=== PATIENT | female | born 1950 | race Caucasian/White ===

== ENCOUNTER 2021-06-17 12:51 | Outpatient (REF) | payer MEDICARE, SELFPAY ==
[2021-06-17 13:06] VITALS: BP 147/65; PULSE 79; RESP 16; TEMP 36.3; O2SAT 99
[2021-06-17 13:07] VITALS: BMI 25.7
== END 2021-06-17 12:52 | disposition home or self-care (01) ==
LOC: HO.MS 12:51
PROVIDERS: PCP Internal Medicine; Visit Provider Ophthalmology
PROC: (CPT 67840; principal; 2021-06-17 12:30)
DX: H02.821 Cysts of right upper eyelid (principal); I10 Essential (primary) hypertension; H52.4 Presbyopia; Z79.899 Other long term (current) drug therapy; Z87.891 Personal history of nicotine dependence
CPT/HCPCS: 67840; 88305

== ENCOUNTER 2022-11-27 13:03 | Outpatient (AMB) | payer MEDICARE, SELFPAY ==
--- NOTE | 2022-11-27 13:19 | MHC.OFFVIS ---
Intake Vital Signs 11/27/22 13:33 Height 5 ft 5 in Weight 176 lb 6 oz BMI 29.3 BP 130/84 Blood Pressure Location Rt brachial Position Sitting Pulse 85 Pulse Source Pulse Oximeter Pulse Oximetry (%) 97 Intake Visit Reasons: NPV-Restless Legs-lvm Intake Note: Patient presents for new patient evaluations Allergies No Known Allergies Allergy (Verified 11/27/22 13:31) Medication List - Last Reconciled 11/27/22 by Laisha Gabriel MD amlodipine 5 mg PO DAILY pramipexole mg PO pramipexole ER 0.375 mg PO BEDTIME HPI HPI Comments History of Present Illness Details 72y/o female comes for further management of restless legs syndrome and PLMD. she reports symptoms since her 30s. SHe was trialed on ropinirole -had a paradoxical response. ABout 2 years ago she was started on pramipexole 0.125 mg . It helps her but still reports residual symptoms. she take sthe medication at 8 pm and is able to fall asleep by 11pm. Now her symptoms start at 3 pm on some days and she still wake sup at 1 am with symptoms she describes the symptom as jumpy legs at rest , improved with activity.she was evaluated with a sleep study in the past No evidence of sleep apnea. Since then she has gained about 40lbs and reports snoring and hypersomnia. [facility] Medical History (Updated 11/27/22 @ 13:56 by Laisha Gabriel MD) Endometrial cancer HTN (hypertension) Hyperlipidemia Hypersomnia Insomnia Osteoporosis Restless legs syndrome (RLS) Snoring Vitamin D deficiency Surgical History H/O: hysterectomy Family History Father HTN (hypertension) Mother HTN (hypertension) Dementia Daughter Multiple sclerosis Social History Alcohol intake: never Patient Tobacco Use Status: Never used Tobacco Review of Systems Const Reports lethargy, Reports malaise and Reports snoring Resp Reports snoring Neuro Reports restless legs Physical Exam Vital Signs: Last Vital Signs Pulse 85 11/27/22 13:33 BP 130/84 11/27/22 13:33 Pulse Ox 97 11/27/22 13:33 BMI result Body Mass Index 29.3 Const General: cooperative, healthy appearing and comfortable Nutritional Appearance: average body habitus Orientation/consciousness: patient oriented x3 Limitations: no limitations Eyes Pupils: Equal, round and reactive pupils present Neuro General: patient oriented x3, gait normal, tone normal, moves all extremities and no focal motor deficits Cranial nerves: Yes Facial sensation intact/muscles of mastication intact, Yes Equal, round and reactive pupils present, Yes Bilaterally intact EOM present, Yes Nystagmus not present, Yes Normal facial strength present, Yes Midline tongue present and Yes Symmetric palate elevation present Cognition (Neuro): normal cognition Gait exam (Neuro): Normal gait present Motor exam (neuro): 5/5 motor strength present throughout, Pronator motor function not present, no tremor noted, Normal motor muscle tone present throughout and Motor abnormalities not present Deep tendon reflexes (DTR's): Right triceps reflex intensity grade: 1+, Left triceps reflex intensity grade: 1+, Rt Biceps (C5, C6): 1+, Left biceps reflex intensity grade: 1+, Right brachioradialis reflex intensity grade: 1+, Left brachioradialis reflex intensity grade: 1+, Right patellar reflex intensity grade: 1+ and Left patellar reflex intensity grade: 1+ Coordination: [id number] test normal Assessment & Plan Assessment & Plan (1) Restless legs syndrome (RLS): Code(s): G25.81 - Restless legs syndrome (2) Snoring: Code(s): R06.83 - Snoring (3) Hypersomnia: Code(s): G47.10 - Hypersomnia, unspecified Plan Trial patient on Pramipexole XR 0.375mg qhs Continue pramipexole 0.125mg q 3 pm as needed Home sleep test to r/o sleep apnea lab reports from PCP Orders: Orders RT home sleep study Today G47.10 - Hypersomnia, unspecified, R06.83 - Snoring Medications: New pramipexole ER 0.375 mg PO BEDTIME 30 tabs 3RF Coding Level of Care Code New Pt Level 4 (59981) Diagnoses Restless legs syndrome (RLS) G25.81 Snoring R06.83 Hypersomnia G47.10
[2022-11-27 13:33] VITALS: BP 130/84; PULSE 85; O2SAT 97; BMI 29.3
== END 2022-11-27 13:39 | disposition home or self-care (01) ==
LOC: HO.HSMS 13:03
PROVIDERS: PCP Internal Medicine; Visit Provider Psychiatry & Neurology Neurology
DX: G25.81 Restless legs syndrome (principal); R06.83 Snoring; G47.10 Hypersomnia, unspecified
CPT/HCPCS: 99204

== ENCOUNTER → 2022-11-27 13:03 | Outpatient (BNVA) | payer MEDICARE, SELFPAY | PROVIDERS: PCP Internal Medicine; Visit Provider Psychiatry & Neurology Neurology | DX: G25.81 Restless legs syndrome (principal); R06.83 Snoring; G47.10 Hypersomnia, unspecified; Z79.899 Other long term (current) drug therapy | CPT/HCPCS: 99202 ==

== ENCOUNTER → 2023-01-05 12:48 | Outpatient (REF) | payer MEDICARE, SELFPAY | LOC: HO.SL 12:48 | PROVIDERS: Visit Provider Psychiatry & Neurology Neurology | DX: G47.10 Hypersomnia, unspecified (principal); R06.83 Snoring | CPT/HCPCS: 95806 ==

== ENCOUNTER → 2023-01-05 13:00 | Outpatient (BNV) | payer MEDICARE, SELFPAY | PROVIDERS: Visit Provider Psychiatry & Neurology Neurology | DX: R06.83 Snoring (principal) | CPT/HCPCS: 95806 ==

== ENCOUNTER 2023-03-25 08:53 | Outpatient (AMB) | payer MEDICARE, SELFPAY ==
--- NOTE | 2023-03-25 08:58 | A.OFFVIS_ITS ---
Intake Vital Signs 03/25/23 09:03 Height 5 ft 5 in Weight 178 lb 4 oz BMI 29.7 BP 158/90 H Blood Pressure Location Rt brachial Position Sitting Respiration 17 Pulse 76 Pulse Source Pulse Oximeter Pulse Oximetry (%) 98 Oxygen Delivery Method Room Air Intake Visit Reasons: 3m f/u Restless Legs - Conf t/CW Intake Note: Pt presents to the office for follow up for restless legs. She reports her symptoms are unchanged since her last visit. 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 SHe was trialed on ropinirole -had a paradoxical response. she describes the symptom as jumpy legs at rest , improved with activity. Home sleep test was normal [facility] Medical History (Updated 11/27/22 @ 13:56 by Laisha Gabriel MD) Hypersomnia Snoring Restless legs syndrome (RLS) Vitamin D deficiency HTN (hypertension) Hyperlipidemia Endometrial cancer Insomnia Osteoporosis Surgical History H/O: hysterectomy Family History Father HTN (hypertension) Mother HTN (hypertension) Dementia Daughter Multiple sclerosis Social History Alcohol intake: never Patient Tobacco Use Status: Never used Tobacco Questionnaire Restless Legs Rating Scale Overall, how would you rate the RLS discomfort in your legs or arms?: Moderate Overall, how would you rate the need to move around because of your RLS symptoms?: Moderate Overall, how much relief of your RLS arm or leg discomfort do you get from moving around?: Moderate Relief Overall, how severe is your sleep disturbance from your RLS symptoms?: Mild How severe is your tiredness or sleepiness from your RLS symptoms?: Moderate Overall, how severe is your RLS as a whole?: Moderate How often do you get RLS symptoms?: Very Severe (This Means 6 to 7 days a week.) When you have RLS symptoms, how severe are they on an average day?: Moderate (This means 1 to 3 hour per 24 hour day.) Overall, how severe is the impact of your RLS symptoms on your ability to carry out your daily affairs, for example carrying out a satisfactory family, home, social, school, or work life?: Mild How severe is your mood disturbance from your RLS symptoms-for example angry, depressed, sad, anxious, or irritable?: Mild Total Score: 19 Rate your symptoms severity for the preceding week overall.: Moderate Physical Exam Vital Signs: Last Vital Signs Pulse 76 03/25/23 09:03 Resp 17 03/25/23 09:03 BP 158/90 H 03/25/23 09:03 Pulse Ox 98 03/25/23 09:03 Oxygen Delivery Method Room Air 03/25/23 09:03 BMI result Body Mass Index 29.7 Assessment & Plan Assessment & Plan (1) Restless legs syndrome (RLS): Code(s): G25.81 - Restless legs syndrome (2) Snoring: Code(s): R06.83 - Snoring (3) Hypersomnia: Code(s): G47.10 - Hypersomnia, unspecified Plan Continue pramipexole 0.125mg 1tabs between 4 and 6pm and 1 tab at bedtime Home sleep test was normal. Increase iron intake Magnesium glycinate 200-400mg qhs lab reports from PCP Medications: Changed From pramipexole 0.125 mg PO .3 pm and 8 pm 60 tabs 6RF To pramipexole 0.125 mg PO .3 pm and 8 pm 90 days 180 tabs 6RF Coding Level of Care Code Est Pt Level 4 (01875) Diagnoses Restless legs syndrome (RLS) G25.81 Snoring R06.83 Hypersomnia G47.10
[2023-03-25 09:03] VITALS: BP 158/90; PULSE 76; RESP 17; O2SAT 98; BMI 29.7
== END 2023-03-25 09:31 | disposition home or self-care (01) ==
PROVIDERS: PCP Internal Medicine; Visit Provider Psychiatry & Neurology Neurology
DX: G25.81 Restless legs syndrome (principal); R06.83 Snoring; G47.10 Hypersomnia, unspecified
CPT/HCPCS: 99214

== ENCOUNTER → 2023-03-25 08:53 | Outpatient (BNVA) | payer MEDICARE, SELFPAY | PROVIDERS: PCP Internal Medicine; Visit Provider Psychiatry & Neurology Neurology | DX: G25.81 Restless legs syndrome (principal); G47.10 Hypersomnia, unspecified; R06.83 Snoring | CPT/HCPCS: 99212 ==

== ENCOUNTER 2024-04-07 08:39 | Outpatient (AMB) | payer MEDICARE, SELFPAY ==
--- NOTE | 2024-04-07 08:43 | A.OFFVIS_ITS ---
Vital Signs 04/07/24 08:46 Height 5 ft 5 in BP 150/98 H Blood Pressure Location Rt brachial Position Sitting Intake Visit Reasons: 1 yr f/u Per MD Intake Note: Patient presents for 1 year follow up Allergies No Known Allergies Allergy (Verified 04/07/24 08:45) Medication List - Last Reconciled 04/07/24 by Bo Avalso PA-C amlodipine 5 mg PO DAILY pramipexole 0.125 mg PO .3 pm and 8 pm 90 days HPI Comments Details: 73 y/o female comes for further management of restless legs syndrome and PLMD. She is on pramipexole 0.125 1-tab 3 pm 1-2 tab qhs and it is helping she is taking it at 6pm and 1 dose at 8pm, managed with medications. Iron - D, B12, B2, B6 is normal, TSH is normal. Magnesium- oxide 500mg Home sleep study is normal. She could not tolerate gabapentin, and ropinorole was sedating. She reports symptoms since her 30s. She describes the symptom as jumpy legs at rest , improved with activity. 10-30pm is bedtime, wakes up 2-3 times at night, 6:30AM gets up. Snoring, daytime excessive sleepiness. Mood is anxious, due to some family changes. She has a good support network with her sister and daughters. She does walk and does stay active. Would like someone to validate her concerns, we discussed finding a good therapist for her on psychology today . [facility] Medical History Hypersomnia Snoring Restless legs syndrome (RLS) Vitamin D deficiency HTN (hypertension) Hyperlipidemia Endometrial cancer Insomnia Osteoporosis Surgical History H/O: hysterectomy Family History Father HTN (hypertension) Mother HTN (hypertension) Dementia Daughter Multiple sclerosis Social History Alcohol intake: never Patient Tobacco Use Status: Never used Tobacco Physical Exam Vital Signs: Last Vital Signs BP 180/102 H 04/07/24 08:46 Const General: cooperative, comfortable and no acute distress Orientation/consciousness: patient oriented x3 HEENT Face and sinus: Yes normal facial exam and Yes face symmetric Eyes General: appearance normal, both eyes and all related structures Pupils: Equal, round and reactive pupils present, Pupils normal by confrontation and Pupil accommodation reflex normal Neck Neck: Yes full ROM Resp Effort & Inspection: normal respiratory effort and able to speak in complete sentences Neuro General: patient oriented x3 Cranial nerves: Yes CN's II-XII intact bilaterally, Yes Facial sensation inta ct/muscles of mastication intact, Yes Equal, round and reactive pupils present, Yes Normal accommodation reflex present, Yes Bilaterally intact EOM present, Yes Ability to bilaterally rotate head present and Yes Ability to bilaterally elevate shoulders present Deep tendon reflexes (DTR's): Right triceps reflex intensity grade: 2+, Left triceps reflex intensity grade: 2+, Rt Biceps (C5, C6): 2+, Left biceps reflex intensity grade: 2+, Right brachioradialis reflex intensity grade: 2+, Left brachioradialis reflex intensity grade: 2+, Right patellar reflex intensity grade: 2+ and Left patellar reflex intensity grade: 2+ Coordination: [id number] test normal Assessment & Plan Assessment & Plan (1) Restless legs syndrome (RLS): Code(s): G25.81 - Restless legs syndrome Category: Medical (2) Hypersomnia: Code(s): G47.10 - Hypersomnia, unspecified Category: Medical Plan Continue pramipexole 0.125mg 1tabs between 4 and 6pm and 1 tab at bedtime Home sleep test was normal. May Increase iron intake with orange juice. Magnesium glycinate 200-400mg qhs lab reports from PCP are normal at this time. Diet and lifestyle will help with mood, and management of daily stress, Continue walking, engaging with your support network and monitoring blood pressure Medications: New magnesium oxide 400 mg PO DAILY 90 tabs 0RF G25.81 - Restless legs syndrome, R06.83 - Snoring Coding Level of Care Code Est Pt Level 3 (62930) Diagnoses Restless legs syndrome (RLS) G25.81 Hypersomnia G47.10
[2024-04-07 08:46] VITALS: BP 150/98
== END 2024-04-07 09:46 | disposition home or self-care (01) ==
PROVIDERS: Absent Provider Psychiatry & Neurology Neurology; PCP Internal Medicine; Visit Provider Physician Assistant Medical
DX: G25.81 Restless legs syndrome (principal); G47.10 Hypersomnia, unspecified
CPT/HCPCS: 99213

== ENCOUNTER → 2024-04-07 08:39 | Outpatient (BNVA) | payer MEDICARE, SELFPAY | PROVIDERS: Absent Provider Psychiatry & Neurology Neurology; PCP Internal Medicine; Visit Provider Physician Assistant Medical | DX: G25.81 Restless legs syndrome (principal); G47.10 Hypersomnia, unspecified | CPT/HCPCS: 99212 ==

== ENCOUNTER 2024-10-06 09:39 | Outpatient (AMB) | payer MEDICARE, SELFPAY ==
--- NOTE | 2024-10-06 09:54 | MHC.OFFVIS ---
Vital Signs 10/06/24 09:55 Height 5 ft 5 in Weight 180 lb BMI 30.0 BP 132/80 Blood Pressure Location Rt brachial Position Sitting Pulse 76 Pulse Source Pulse Oximeter Pulse Oximetry (%) 95 Oxygen Delivery Method Room Air Intake Visit Reasons: Follow Up 6mo Intake Note: Patient presents follow up RLS/Sleep medication. Allergies No Known Allergies Allergy (Verified 10/06/24 10:02) HPI Comments Details: 74 y/o female comes for further management of RLS and PLMD. 12/2022 HST AHI was 2 and oxygen david to 84%, did not meet the criteria for sleep apnea. She continues to take Pramipexole 0.125 1-tablet at 3pm, then 1-2 tablets qhs, between 6-8pm, this routine has helped her legs to be less jumpy and she falls asleep by 10:30pm. If she misses a dose, she will take 2 tablets at 8pm, and usually by 10:30 pm she is asleep. In the past she tried gabapentin and ropinirole however felt sedated the next morning. She says her legs have been jumpy at rest since she can remember in her 30s, however they improve with activity. She has always struggled with sleep usually goes to sleep by 10:30pm at the latest wakes up at 3am and ruminates about intrusive daily thoughts. She still snores and is fatigued most days. Her blood pressure is better today, and she is feeling much better than last visit. She is trying to find a good psychologist who will listen to her and validate her concerns. Her mood is improved today, and she does have a good support network, she goes out with her sister and friends. She walks daily and stays active as it helps with the RLS symptoms. Reviewed labs with her TSH, Iron panel, Vit D B12, B6 is normal. She says she has been eating carbs at night and would like to change this habit. Her memory is okay, she forgets occasionally however nothing noticeable. She denies morning headaches. She denies bruxism. [facility] Medical History Hypersomnia Snoring Restless legs syndrome (RLS) Vitamin D deficiency HTN (hypertension) Hyperlipidemia Endometrial cancer Insomnia Osteoporosis Surgical History H/O: hysterectomy Family History Father HTN (hypertension) Mother HTN (hypertension) Dementia Daughter Multiple sclerosis Social History Alcohol intake: never Patient Tobacco Use Status: Never used Tobacco Physical Exam Vital Signs: Last Vital Signs Pulse 76 10/06/24 09:55 BP 132/80 10/06/24 09:55 Pulse Ox 95 10/06/24 09:55 Oxygen Delivery Method Room Air 10/06/24 09:55 BMI result Body Mass Index 30.0 Const General: cooperative, comfortable and no acute distress Nutritional Appearance: overweight Orientation/consciousness: patient oriented x3 HEENT Face and sinus: Yes face symmetric Eyes Pupils: Equal, round and reactive pupils present Resp Effort & Inspection: normal respiratory effort and able to speak in complete sentences Neuro General: patient oriented x3 and moves all extremities Cranial nerves: Yes Facial sensation intact/muscles of mastication intact, Yes Equal, round and reactive pupils present, Yes Normal accommodation reflex present, Yes Normal facial strength present, Yes Midline tongue present, Yes Ability to bilaterally rotate head present and Yes Ability to bilaterally elevate shoulders present Gait exam (Neuro): Normal gait present Motor exam (neuro): 5/5 motor strength present throughout and Normal motor muscle tone present throughout Coordination: [id number] test normal Psych Thought process: Normal thought process present Thought content: Normal thought content present Insight: Good insight present (Psych) Judgement: Good judgement present (Psych) Results Reviewed Results Reviewed: T 2022 AHI is 2 oxygen david to 84%, did not meet the criteria for sleep apnea. Labs from [place] are normal vit d is low, continue to take daily vitamin D. Assessment & Plan Assessment & Plan (1) Snoring: Code(s): R06.83 - Snoring Category: Medical (2) Hypersomnia: Code(s): G47.10 - Hypersomnia, unspecified Category: Medical (3) Restless legs syndrome (RLS): Code(s): G25.81 - Restless legs syndrome Category: Medical (4) Vitamin D deficiency: Code(s): E55.9 - Vitamin D deficiency, unspecified Category: Medical Plan Continue pramipexole 0.125mg 1tabs between 4 and 6pm and 1 tab at bedtime as neeed for RLS symptoms. Magnesium glycinate 200-400mg qhs Diet and lifestyle will help with mood, and management of daily stress, anxiety and fatigue. Continue walking daily, engaging with your support network and monitoring blood pressure. Patient Instructions: Sleep Hygiene provided: set a scheduled bedtime and wake time to help regulate the circadian rhythm and balance the release of pituitary hormones. Sleep in a dark room, temperatures below 68 degrees, and no devices n bed. Limit caffeinated products 6 hours prior to bed, and limit fluids 2-4 hours prior to bed. Gentle night yoga, diffusing essential oils, and playing soft music can be relaxing. Finding a sleep certified psychologist to speak with may be very helpful in the steps towards self-care. Meditation and finding a hobby to engage in with your religious or community may also be a means to focus on self care. Coding Level of Care Code Est Pt Level 4 (17846) Diagnoses Snoring R06.83 Hypersomnia G47.10 Restless legs syndrome (RLS) G25.81 Vitamin D deficiency E55.9 Time Spent (min) 30
[2024-10-06 09:55] VITALS: BP 132/80; PULSE 76; O2SAT 95
--- OUTSIDE RECORDS SUMMARY | 2024-10-06 09:56 | XMS_ITS | Clinical Summary ---
Author Organization [facility] Address [address] [place] [address] Phone Care Team Providers Care Inhalation Therapy Aide Name Role Phone Vida Ring Primary Care Provider + Allergies No known active allergies Medications pramipexole (MIRAPEX) 0.125 mg tablet Take 2 tablets (0.25 mg total) by mouth at bedtime. 3 Active conjugated estrogens (PREMARIN) vaginal cream 0.625 Each. 8 Active B complex tablet Take 1 tablet by mouth 1 (one) time each day. Active TURMERIC ORAL Take 500 mg by mouth 1 (one) time each day. Active amLODIPine (NORVASC) 5 mg tabletIndications :Essential (primary) hypertension TAKE 1 TABLET BY MOUTH EVERY DAY 90 tablet 3 5 Active Active Problems Problem Noted Date Diagnosed Date Insomnia 03/31/2024 Osteoporosis 03/31/2024 Overview (03/31/2024): BMD 02/23/20 Restless leg syndrome 01/20/2019 HTN (hypertension) 10/19/2017 Hyperlipidemia 10/19/2017 Vitamin D deficiency 10/19/2017 Immunizations Name Administration Dates Next Due Influenza trivalent, 0.5mL ( Fluad) 65yo and older 02/11/2017 Influenza, Unspecified 03/05/2023,03/18/2021,05/2019 Moderna SARS-CoV-2 COVID-19, mRNA, LNP-S, preservative free 05/07/2021 Pneumococcal conjugate 13 va lent (Prevnar 13, PCV13) 2mo and older 06/28/2015 Pneumococcal polysaccharide 23 valent (Pneumovax 23) 2yo and older 01/31/2016 Tdap Tetanus diptheria acell ular pertussis (Boostrix; Adacel) 7yo and older 05/30/2009 Surgical History Surgery Date Site/Laterality Comments OTHER SURGICAL HISTORY 1999 PROCEDURE: [place] TOTAL ABDOMINAL HYSTERECT W/WO RMVL TUBE OVARY; COMMENT: due to endometrial cancer - Dr. Regalado TUBAL LIGATION PROCEDURE: HISTORICAL TUBAL LIGATION Medical History Medical History Date Comments Hypercholesteremia 10/19/2017 DX:Hyperchole steremia Vitamin D deficiency 10/19/2017 DX:Vitamin D deficiency Insomnia DX:Insomnia History of endometrial cancer DX :History of endometrial cancer; COMMENT: s/p TIM 1999 Dr. Regalado Osteoporosis DX:Osteoporosis; COMMENT: BMD 02/23/20 HTN (hypertension) 10/19/2017 DX:HTN (hyper tension) Family History Medical History Relation Name Comments Heart failure Father Other: cardiomegaly Father Dementia Mother Hypertension Mother Relation Name Status Comments Father (Age 74) Mother Alive Social History Tobacco Use Types Packs/Day Years Used Date Smoking Tobacco: Former Cigarettes 0.5 5 0 10/14/1965 - 10/14/1970 Smokeless Tobacco: Never Tobacco Cessation:Counseling Given: Not Answered Alcohol Use Standard Drinks/Week Comments Yes 0 (1 standard drink = 0.6 oz pur e alcohol) Housing Instability Answer Date Recorde d Are you worried that in the next 2 months you may not have stable housing? No 04/29/2024 Food Access & Nutrition Answer Date Rec orded Do you have access to a vari ety of food including fruits and vegetables? Yes 04/29/2024 Access to Healthcare Answer Date Record ed Within the last 3 months, ho w many times did you visit the emergency department for your medical care? 0 04/29/2024 Health Literacy Answer Date Recorded How often do you need to hav e someone help you when you read instructions, pamphlets, or other written material from your doctor or pharmacy? Never 04/29/2024 Caregiver: How often do you need to have someone help you when you read instructions, pamphlets, or other written material from your doctor or pharmacy? Not on file 04/29/2024 Financial Risk Answer Date Recorded How hard is it for you to pa y for the very basics like food, housing, medical care, and air conditioning / heating? Not very hard 04/29/2024 Transportation Answer Date Recorded Has the lack of transportati on kept you from meetings, work, or from getting things needed for daily living? No Has the lack of transportati on kept you from medical appointments or from getting medications? No 04/29/2024 Social Isolation Answer Date Recorded How often do you feel lonely or isolated from th ose around you? Never 04/29/2024 Food Risk Answer Date Recorded Within the past 12 months we worried whether our food would run out before we got money to buy more. Never true 04/29/2024 Within the past 12 months th e food we bought just didn't last and we didn't have money to get more. Never true 04/29/2024 Dependent Care Answer Date Recorded Do you need help finding or paying for care for your loved ones. For example, early childhood teacher or elderly care for an older adult? No 04/29/2024 Education Answer Date Recorded Do you think completing more education or training, like finishing a GED, going to college, or learning a trade, would be helpful for you? No 04/29/2024 Employment and Income Answer Date Recor ded During the last four weeks, have you been actively looking for work? No 04/29/2024 Living Situation Answer Date Recorded What is your living situation? 1 06/30/2023 Comments Unknown Sex and Gender Information Value Date Recorded Sex Assigned at Not on file Legal Sex Female 3:20 AM EST Gender Identity Not on file Sexual Orientation Not on file Obstetrics History Last Filed Vital Signs Vital Sign Reading Time Taken Comments Blood Pressure 122/70 05/05/2024 11:16 AM EST Pulse 78 05/05/2024 11:16 AM EST Temperature 36.6 ??C (97.8 ??F) 05/05/2024 11:[address] Respiratory Rate - - Oxygen Saturation 97% 05/05/2024 11:16 AM EST Inhaled Oxygen Concentration - - Weight 78.9 kg (174 lb) 05/05/2024 11:16 AM EST Height 165.1 cm (5' 5 ) 05/04/2023 10:46 AM EST Body Mass Index 28.96 05/04/2023 10:46 AM EST Plan of Treatment Upcoming Encounters Date Type Department Care Team (Late st Contact Info) Description 05/08/2025 11:15 AM EST Office Visit Internal Medicine - [place] [address] [place] [address] Vida Ring, MIYA [address] [place] [address] Health Maintenance Due Date Last Done Comments Zoster Vaccines (1 of 2) 01/17/2000 DTaP,Tdap,and Td Vaccines (2 - Td or Tdap) 05/30/2019 05/30/2009 Falls Risk Assessment 04/26/2022 Hepatitis C Screening 04/26/2022 Medicare Annual Wellness Visit 04/26/2022 COVID-19 Vaccine ( season) 2024 05/07/2021, 09/02/2020, 08/05/2020 Hypertension/CHF/CAD Annual BMP Blood Test 07/13/2024 07/13/2023, 07/13/2023 RSV Immunization Adult Patients (1 - 1-dose 75+ series) 2025 Depression Screening 04/29/2025 04/29/2024 Social Influencers of Health Screening 04/29/2025 04/29/2024 Breast Cancer Screening 08/19/2025 08/20/19 24, 02/23/2020, 01/18/2019, Additional history exists Colorectal Cancer Screening: Colonoscopy 10/23/2025 10/23/2020 Cholesterol Screening (Lipid Panel) 07/13/2028 07/13/2023, 07/13/2023 Osteoporosis Screening (Bone Density Screening) 02/22/2030 02/23/2020 Pneumococcal Vaccine: 50+ Years Completed 01/31/2016, 06/28/2015 Influenza Vaccine Completed 03/24/2024, , 03/05/2023, Additional history exists HIB Vaccines Aged Out No longer eligi ble based on patient's age to complete this topic HPV Vaccines Aged Out No longer eligi ble based on patient's age to complete this topic Hepatitis A Vaccines Aged Out No long er eligible based on patient's age to complete this topic Hepatitis B Vaccines Aged Out No long er eligible based on patient's age to complete this topic IPV Vaccines Aged Out No longer eligi ble based on patient's age to complete this topic MMR Vaccines Aged Out No longer eligi ble based on patient's age to complete this topic Meningococcal ACWY Vaccine Aged Out N o longer eligible based on patient's age to complete this topic Meningococcal B Vaccine Aged Out No l onger eligible based on patient's age to complete this topic RSV Immunization Patients Under 20 months Aged Out No longer eligible based on patient's age to complete this topic Varicella Vaccines Aged Out No longer eligible based on patient's age to complete this topic Procedures Procedure Name Priority Date/Time Associated Diagnosis Comments [facility] SCREENING DIGITAL Routine 08/20/2023 11:33 AM EDT Encounter for screening mammogram for malignant neoplasm of breast ANNUAL BMP BLOOD TEST Routine 07/13/2023 LIPID PANEL Routine 07/13/2023 COLONOSCOPY Routine 10/23/2020 [facility] DEXA AXIAL SKELETON Routine 02/23/2020 10:41 AM EDT Age-related osteoporosis without current pathological fracture from Last 3 Months or Most Recently Relevant to Health Maintenance Results * [facility] SCREENING DIGITAL (08/20/2023 11:33 AM EDT) Anatomical Region Laterality Modality Mammography 08/20/2023 9:43 AM EDT Narrative 08/20/2023 11:33 AM EDT [facility] Diagnostic Imaging Department [address] [place], [place] [id number] Patient: ??ALINA PRINGLE ?/Age/Sex: 1950 - 73 - Unit#: ??[id number] ? Location/Status: ??SPDIMAM/REG CLI ? Mnemonic/Ordering Site: ??DIGSC/SPMAM Ordering Physician: ??WU HALLMAN MD [facility] Screening Digital - 08/20/23 - 0956 Report Status:Signed EXAM: [facility] Screening Digital EXAM DATE AND TIME: 08/20/2023 9:56 AM HISTORY: ??Annual screening COMPARISON: TECHNIQUE: Bilateral digital breast tomosynthesis was performed in the CC and MLO projections. Computer aided detection with [employer] 3D 3.1 was employed. TISSUE DENSITY: b. There are scattered areas of fibroglandular density. FINDINGS: No suspicious masses, grouped microcalcifications, or areas of architectural distortion are seen. The skin and vascularity are unremarkable. IMPRESSION: Stable mammographic appearance of the breasts. ??No evidence of malignancy is seen. A negative mammogram in the presence of a clinically suspicious palpable abnormality does not preclude the possibility of malignancy or alter the indications for biopsy. BI-RADS: ??Category 1: Negative RECOMMENDATION(S): 1: Routine screening mammogram BILATERAL in 1 year. 3341F, 7025F Dictating Physician: ??OWEN PACHECO MD Electronically Signed by: ??OWEN PACHECO MD Dic Date/Time: ??08/20/23 1132 Sign date/Time: ??08/20/23 1133 Procedure Note Owen Pacheco MD - 01/04/2024 [facility] Diagnostic Imaging Department [address] [place] [address] Patient: ALINA PRINGLE.O.B./Age/Sex: 1950 - 73 - F Unit#: [id number] Location/Status: SPDIMAM/REG CLI Mnemonic/Ordering Site: [facility] Ordering Physician: WU HALLMAN MD [facility] Screening Digital - 08/20/23 - 0956 Report Status:Signed EXAM: [facility] Screening Digital EXAM DATE AND TIME: 08/20/2023 9:56 AM HISTORY: Annual screening COMPARISON: TECHNIQUE: Bilateral digital breast tomosynthesis was performed in the CCand MLO projections. Computer aided detection with [employer] 3D 3.1was employed. TISSUE DENSITY: b. There are scattered areas of fibroglandular density. FINDINGS: No suspicious masses, grouped microcalcifications, or areas ofarchitectural distortion are seen. The skin and vascularity are unremarkable. IMPRESSION: Stable mammographic appearance of the breasts. No evidence of malignancyis seen. A negative mammogram in the presence of a clinically suspicious palpable abnormality does not preclude the possibility of malignancy or alter the indications for biopsy. BI-RADS: Category 1: Negative RECOMMENDATION(S): 1: Routine screening mammogram BILATERAL in 1 year. 3341F, 7025F Dictating Physician: OWEN PACHECO MD Electronically Signed by: OWEN PACHECO MD Dic Date/Time: 08/20/23 1132 Sign date/Time: 08/20/23 1133 Wu Hallman MD IM BI PROCEDURES Final Result * Annual BMP Blood Test (07/13/2023) Pathologist [facility] Annual BMP Blood Test abstracted Blu Provider HEALTH MAINTENANCE Final Result * (ABNORMAL) Lipid panel (07/13/2023) Pathologist [facility] LDL/HDL Ratio 4 0 - 4 Triglycerides 211(A) 0 - 150 mg/dL Cholesterol 168 0 - 200 mg/dL HDL 41 >=40 mg/dL LDL Cholesterol 85 0 - 100 mg/dL Blood Venous blood specimen / Unknown Historical Provider LAB BLOOD ORDERABLES Sanjana l Result * Colonoscopy (10/23/2020) Colonoscopy no interpretation , abstracted Anatomical Region Laterality Modality Other Historical Provider HEALTH MAINTENANCE Final Result * [facility] DEXA AXIAL SKELETON (02/23/2020 10:41 AM EDT) Anatomical Region Laterality Modality Mammography 02/23/2020 9:04 AM EDT Narrative 02/23/2020 10:41 AM EDT [facility] Diagnostic Imaging Department [address] [place] [address] Patient: ??ALINA PRINGLE ?/Age/Sex: 1950 - 70 - F Unit#: ??[id number] ? Location/Status: ??SPDIMAM/REG CLI ? Mnemonic/Ordering Site: ??MAMDEXAAX/SPMAM Ordering Physician: ??MAXIMUS ESCOBAR MD [facility] Dexa Axial Skeleton - 02/23/20 - 1007 HISTORY: ??The patient is a 70-year-old postmenopausal female with clinical concern for metabolic bone disease. FINDINGS: ??Dual energy x-ray absorptiometry of the lumbar spine and femurs is performed. The mean bone mineral density at L1-L4 is 1.116 gm/cm2 which is 95% of that of young normals and 109% of that of age matched controls. This yields a T-score of -0.5 and a Z-score of 0.8 and there is therefore no evidence of osteoporosis or osteopenia here. The mean bone mineral density of the femurs bilaterally is 0.813 gm/cm2 which is 81% of that of young normals and 95% of that of age matched controls. ??This yields a T-score of -1.5 and a Z-score of -0.3 which is diagnostic of osteopenia. However, the T-score of the right femoral neck is -2.8 which is diagnostic of osteoporosis. IMPRESSION: 1. Osteoporosis. ??There has been an increase of 0.5% in bone mineral density in the lumbar spine since the prior examination of 04/20/2017. ??There has been an increase of 3.8% in bone mineral density in the right femur and an increase of 2.4% in bone mineral density in the left femur. 2. FRAX analysis yields a 10-year probability of major osteoporotic fracture of 16.7% and a 10-year probability of hip fracture of 5.0%. Code 55001 Dictating Physician: ??BRITT DELANEY MD Electronically Signed by: ??BRITT DELANEY MD Dic Date/Time: ??02/23/20 1038 Sign date/Time: ??02/23/20 1041 Procedure Note Britt Delaney MD - 05/06/2022 [facility] Diagnostic Imaging Department [address] [place] [address] Patient: ALINA PRINGLE D.O.B./Age/Sex: 1950 - - F Unit#: [id number] Location/Status: SPDIMAM/REG CLI [facility] Ordering Physician: MAXIMUS ESCOBAR MD Rad[facility] Dexa Axial Skeleton - 02/23/20 - 1007 HISTORY: The patient is a 70-year-old postmenopausal female withclinical concern for metabolic bone disease. FINDINGS: Dual energy x-ray absorptiometry of the lumbar spine and femursis performed. The mean bone mineral density at L1-L4 is 1.116 gm/cm2 which is95% of that of young normals and 109% of that of age matched controls. Thisyields a T-score of -0.5 and a Z-score of 0.8 and there is therefore no evidenceof osteoporosis or osteopenia here. The mean bone mineral density of the femurs bilaterally is 0.813 gm/mj3hsqyr is 81% of that of young normals and 95% of that of age matched controls.This yields a T-score of -1.5 and a Z-score of -0.3 which is diagnostic of osteopenia. However, the T-score of the right femoral neck is -2.8 whichis diagnostic of osteoporosis. IMPRESSION: 1. Osteoporosis. There has been an increase of 0.5% in bone mineraldensity in the lumbar spine since the prior examination of 04/20/2017. There has beenan increase of 3.8% in bone mineral density in the right femur and anincrease of 2.4% in bone mineral density in the left femur. 2. FRAX analysis yields a 10-year probability of major osteoporoticfracture of 16.7% and a 10-year probability of hip fracture of 5.0%. Code 02575 Dictating Physician: BRITT DELANEY MD Electronically Signed by: BRITT DELANEY MD Dic Date/Time: 02/23/20 1038 Sign date/Time: 02/23/20 1041 Maximus Escobar MD IMG BI PROCEDURES Final Result from Last 3 Months or Most Recently Relevant to Health Maintenance Insurance [employer] Care Teams Inhalation Therapy Aide Relationship Specialty Start Date End Date Vida Ring PA [address] [place] [address] PCP - General 04/04/20
== END 2024-10-06 10:45 | disposition home or self-care (01) ==
LOC: HO.HSMS 09:39
PROVIDERS: PCP Internal Medicine; Visit Provider Physician Assistant Medical
DX: R06.83 Snoring (principal); G47.10 Hypersomnia, unspecified; G25.81 Restless legs syndrome; E55.9 Vitamin D deficiency, unspecified
CPT/HCPCS: 99214

== ENCOUNTER → 2024-10-06 09:39 | Outpatient (BNVA) | payer MEDICARE, SELFPAY | PROVIDERS: PCP Internal Medicine; Visit Provider Physician Assistant Medical | DX: G47.10 Hypersomnia, unspecified (principal); G25.81 Restless legs syndrome; R06.83 Snoring; E55.9 Vitamin D deficiency, unspecified | CPT/HCPCS: 99212 ==

== ENCOUNTER 2025-05-17 12:48 | Outpatient (AMB) | payer MEDICARE, SELFPAY ==
--- NOTE | 2025-05-17 13:04 | MHC.OFFVIS ---
Vital Signs 05/17/25 13:05 Height 5 ft 5 in Weight 177 lb BMI 29.5 BP 138/84 Blood Pressure Location Lt brachial Position Sitting Pulse 79 Pulse Source Pulse Oximeter Pulse Oximetry (%) 97 Oxygen Delivery Method Room Air Intake Visit Reasons: F/U Intake Note: Patient presents follow up RLS/Sleep. No chances. Accompanied by: Self / Same As Patient Allergies No Known Allergies Allergy (Verified 05/17/25 13:06) HPI Comments Details: 75 y/o female comes for further management of RLS and PLMD. 12/2022 HST AHI was 2 and oxygen david to <84% for 6.7 min, she snores 11% of TTB. She snores and is fatigued most days, declines a sleep dentistry evaluation today for an oral appliance. She continues to take 2 tablets of Pramipexole 0.125mg qpm, between 6-8pm, this routine has helped her legs to be less jumpy . If she misses a dose, she can stay up all night due to the discomfort as it takes 2 hours for her legs to settle down. She tried Gabpentin and Ropinirole in the past however she always felt sedated and hungover the next morning. She says her legs have been jumpy at rest since she can remember in her 30s, and improve with activity, stretching and walking helps to improve the discomfort. She has always struggled with sleep due to the leg spasms and twitches. She usually goes to sleep by 10:30pm and has multiple arousals with intrusive daily thoughts. Her blood pressure is better today, and she is feeling much better than last visit. Her 46 year old daughter moved out of the home and this has given her some more space and freedom. Her mood is improved today, and she does have a good support network, she goes out with her sister and friends. She has night time cravings and will eat empty carbs at night she has lost 3 lbs since her last visit. We discussed eating a nutrient dense diet through the day with increased proteins to improve her levels of satiety in the evenings. Her memory is stable, she forgets and has has occasional difficulty names.She denies morning headaches, denies parasomnias, abnormal sleep behaviors, smoking and has alcohol socially. [facility] Medical History Hypersomnia Snoring Restless legs syndrome (RLS) Vitamin D deficiency HTN (hypertension) Hyperlipidemia Endometrial cancer Insomnia Osteoporosis Surgical History H/O: hysterectomy Family History Father HTN (hypertension) Mother HTN (hypertension) Dementia Daughter Multiple sclerosis Social History Alcohol intake: never Patient Tobacco Use Status: Never used Tobacco Physical Exam Vital Signs: Last Vital Signs Pulse 79 05/17/25 13:05 BP 138/84 05/17/25 13:05 Pulse Ox 97 05/17/25 13:05 Oxygen Delivery Method Room Air 05/17/25 13:05 BMI result Body Mass Index 29.5 Const General: cooperative, comfortable and no acute distress Nutritional Appearance: overweight Orientation/consciousness: patient oriented x3 HEENT Face and sinus: Yes face symmetric Eyes Pupils: Equal, round and reactive pupils present Resp Effort & Inspection: normal respiratory effort and able to speak in complete sentences Neuro Other: gait is normal / good stride and posture General: patient oriented x3 and moves all extremities Cranial nerves: Yes Facial sensation intact/muscles of mastication intact, Yes Equal, round and reactive pupils present, Yes Normal accommodation reflex present, Yes Normal facial strength present, Yes Midline tongue present, Yes Ability to bilaterally rotate head present and Yes Ability to bilaterally elevate shoulders present Gait exam (Neuro): Normal gait present Motor exam (neuro): 5/5 motor strength present throughout and Normal motor muscle tone present throughout Coordination: [id number] test normal Psych Appearance: grossly normal Speech and movement: Normal speech and movement present Thought process: Normal thought process present Thought content: Normal thought content present Insight: Good insight present (Psych) Judgement: Good judgement present (Psych) Results Reviewed Results Reviewed: Labs reviewed on her [facility] portal jessee. CBC/ CMP. Assessment & Plan Assessment & Plan (1) Restless legs syndrome (RLS): Code(s): G25.81 - Restless legs syndrome Category: Medical (2) Snoring: Code(s): R06.83 - Snoring Category: Medical (3) Insomnia: Code(s): G47.00 - Insomnia, unspecified Category: Medical Qualifiers: Insomnia type: primary Qualified Code(s): F51.01 - Primary insomnia Plan Insomnia, HST did not reveal evidence of NATE. May continue melatonin 3-6mg po qpm. RLS / PLMD magnesium was ineffective, she tried gabapentin and ropinirole both caused her to feel sedated and hungover so she discontinued use. Will Write her a rx for [employer] Tonic Motor device. Continue Pramiprexole 0.125mg po BID for twitching of the legs. Complete labs for ferritin, TSH is elevated, B12 and folate, MMA, Homocysteine and vit D. Orders: Orders IRON PROFILE Today G25.81 - Restless legs syndrome, G47.9 - Sleep disorder, unspecified, R53.82 - Chronic fatigue, unspecified, R53.83 - Other fatigue Complete Blood Count no Diff Today G25.81 - Restless legs syndrome, R53.82 - Chronic fatigue, unspecified Comprehensive Met. Panel Today G25.81 - Restless legs syndrome, R53.82 - Chronic fatigue, unspecified Vitamin B12 and Folate Today G25.81 - Restless legs syndrome, R53.82 - Chronic fatigue, unspecified TSH reflex Free T4 Today G25.81 - Restless legs syndrome, R53.82 - Chronic fatigue, unspecified Methylmalonic Acid Today G25.81 - Restless legs syndrome, G47.9 - Sleep disorder, unspecified, R53.82 - Chronic fatigue, unspecified, R53.83 - Other fatigue Vitamin D 25-OH Total Today G25.81 - Restless legs syndrome, R53.82 - Chronic fatigue, unspecified Ferritin Today G25.81 - Restless legs syndrome, R53.82 - Chronic fatigue, unspecified Homocysteine Today G25.81 - Restless legs syndrome, G47.9 - Sleep disorder, unspecified, R53.82 - Chronic fatigue, unspecified, R53.83 - Other fatigue Medications: New melatonin 3 mg PO BEDTIME PRN 90 caps 3RF sleep 3 months [nidra tonic motor device] As directed 2 ea 0RF RLS G25.81 - Restless legs syndrome Patient Instructions: Sleep Hygiene provided: set a scheduled bedtime and wake time to help regulate the circadian rhythm and balance the release of pituitary hormones. Sleep in a dark room, temperatures below 68 degrees, and no devices n bed. Limit caffeinated products 6 hours prior to bed, and limit fluids 2-4 hours prior to bed. Gentle night yoga, diffusing essential oils, and playing soft music can be relaxing. Coding Level of Care Code Est Pt Level 4 (67042) Diagnoses Restless legs syndrome (RLS) G25.81 Snoring R06.83 Primary insomnia F51.01 Insomnia type: primary
[2025-05-17 13:05] VITALS: BP 138/84; PULSE 79; O2SAT 97; BMI 29.5
--- OUTSIDE RECORDS SUMMARY | 2025-05-17 14:21 | XMS_ITS ---
Author Name [facility] Organization Unknown Care Team Organization Name Specialty Phone Email Start Date End Da te [facility] 01/04/2025 [facility] 03/25/2022 01/04/20 24
--- OUTSIDE RECORDS SUMMARY | 2025-05-17 14:21 | XMS_ITS | Clinical Summary ---
Author Organization [facility] Address [address] [place] [address] [place] [phone] Phone Care Team Providers Care Crusher And Binder Operator Name Role Phone Wu Hallman MD Primary Care Provider [phone] Allergies No known active allergies Medications amLODIPine (NORVASC) 5 MG tablet Take 1 tablet by mouth every morning. 12/26/2022 Active gabapentin (NEURONTIN) 100 MG capsule Take 100 mg by mouth nightly at bedtime. 12/08/2022 Active pramipexole (MIRAPEX) 0.125 MG tablet Take 0.25 mg by mouth nightly at bedtime. 12/05/2022 Active Active Problems Problem Noted Date Diagnosed Date Changing pigmented skin lesion 02/27/2023 Family History Medical History Relation Comments Heart disease Father Hypertension Mother Relation Status Comments Father Mother Alive Social History Tobacco Use Types Packs/Day Years Used Date Smoking Tobacco: Never Smokeless Tobacco: Never Tobacco Cessation:Counseling Given: Not Answered Alcohol Use Standard Drinks/Week Comments Not Currently 0 (1 standard drink = 0.6 oz pur e alcohol) Education Answer Date Recorded Are you interested in more education? Not on denys e 12/17/2022 Are you concerned about learning? Not on file 12/17/2022 No 12/17/2022 No 12/17/2022 Digital Access Answer Date Recorded No 12/17/2022 No 12/17/2022 Reliable internet access at home? Not on file 12/17/2022 Device with a working camera? Not on file Comments Unknown Sex and Gender Information Value Date Recorded Sex Assigned at Not on file Legal Sex Female 11:46 AM EDT Gender Identity Not on file Sexual Orientation Not on file Last Filed Vital Signs Vital Sign Reading Time Taken Comments Blood Pressure 132/73 01/13/2023 9:48 AM EDT Pulse 87 01/13/2023 9:48 AM EDT Temperature - - Respiratory Rate - - Oxygen Saturation - - Inhaled Oxygen Concentration - - Weight 79.8 kg (176 lb) 01/13/2023 9:48 AM EDT Height 166.4 cm (5' 5.5 ) 01/13/2023 9:48 AM EDT Body Mass Index 28.84 01/13/2023 9:48 AM EDT Plan of Treatment Health Maintenance Due Date Last Done Comments Adult Td,Tdap Booster 1950 LIPID PANEL 1950 DEPRESSION SCREENING 1962 HEPATITIS C SCREENING 01/17/1968 COLOGUARD 1995 COLONOSCOPY 1995 COLORECTAL CANCER SCREENING 1995 FIT TEST 1995 FOBT 1995 SIGMOIDOSCOPY 1995 VIRTUAL COLONOSCOPY 1995 PNEUMOCOCCAL VACCINES (50+ y ears) (1 of 1 - PCV) 01/17/2000 ZOSTER VACCINES (1 of 2) 01/17/2000 OSTEOPOROSIS SCREENING INITI AL (ONE-TIME) 2015 INFLUENZA VACCINE (#1) 2024 COVID-19 VACCINE ( - 2024-2 6 season) 2025 RSV VACCINE (1 - 1-dose 75+ series) 2025 SMOKING STATUS SCREENING (On ce After 26 Yrs) Completed 01/13/2023 HEPATITIS A VACCINES Aged Out No long er eligible based on patient's age to complete this topic HIB VACCINES Aged Out No longer eligi ble based on patient's age to complete this topic MENINGOCOCCAL VACCINES (ACWY) Aged Out No longer eligible based on patient's age to complete this topic MENINGOCOCCAL VACCINES (B) Aged Out N o longer eligible based on patient's age to complete this topic Medical Devices Not on file Insurance [employer] MEDICARE PART A & B [employer] MEDICARE PART A & B [employer] RE[employer] MEDICARE PART A & B MEDICARE PART A & B MEDICARE PART A & B MEDICARE PART A & B Care Teams Crusher And Binder Operator Relationship Specialty Start Date End Date Wu Hallman MD [address] [place] [id number] PCP - General Internal Medicine 12/16/22 Additional Source Comments The information contained in this document represents components of the legal health record. It is not the complete legal health record.[facility]
--- OUTSIDE RECORDS SUMMARY | 2025-05-17 14:21 | XMS_ITS | Encounter Summary ---
Author Organization [facility] Address [address] [place] [address] Care Team Providers Care Kayaking Instructor Name Role Phone Vida Ring Primary Care Provider + Encounter Details Date Type Department Care Team ([facility] Contact Info) Description 05/15/2025 Results Follow-Up Internal Medicine - [place] [address] [facility] [address] [place] [id number] Vida Ring PA [address] [facility] [address] [facility] [address] [place] [address] Social History Tobacco Use Types Packs/Day Years Used Date Smoking Tobacco: Former Cigarettes 0.5 5 0 10/14/1965 - 10/14/1970 Smokeless Tobacco: Never Alcohol Use Standard Drinks/Week Comments Yes 0 (1 standard drink = 0.6 oz pur e alcohol) Housing Instability Answer Date Recorde d Are you worried that in the next 2 months you may not have stable housing? No 05/07/2025 Food Access & Nutrition Answer Date Rec orded Do you have access to a vari ety of food including fruits and vegetables? Yes 05/07/2025 Access to Healthcare Answer Date Record ed Within the last 3 months, ho w many times did you visit the emergency department for your medical care? 0 05/07/2025 Health Literacy Answer Date Recorded How often do you need to hav e someone help you when you read instructions, pamphlets, or other written material from your doctor or pharmacy? Never 05/07/2025 Caregiver: How often do you need to have someone help you when you read instructions, pamphlets, or other written material from your doctor or pharmacy? Not on file 05/07/2025 Financial Risk Answer Date Recorded How hard is it for you to pa y for the very basics like food, housing, medical care, and air conditioning / heating? Not very hard 05/07/2025 Transportation Answer Date Recorded Has the lack of transportati on kept you from meetings, work, or from getting things needed for daily living? No Has the lack of transportati on kept you from medical appointments or from getting medications? No 05/07/2025 Social Isolation Answer Date Recorded How often do you feel lonely or isolated from th ose around you? Rarely 05/07/2025 Food Risk Answer Date Recorded Within the past 12 months we worried whether our food would run out before we got money to buy more. Never true 05/07/2025 Within the past 12 months th e food we bought just didn't last and we didn't have money to get more. Never true 05/07/2025 Dependent Care Answer Date Recorded Do you need help finding or paying for care for your loved ones. For example, childrens club attendant or elderly care for an older adult? No 05/07/2025 Education Answer Date Recorded Do you think completing more education or training, like finishing a GED, going to college, or learning a trade, would be helpful for you? N/A 05/07/2025 Employment and Income Answer Date Recor ded During the last four weeks, have you been actively looking for work? No 05/07/2025 Living Situation Answer Date Recorded What is your living situation? Unrecognized valu e 05/07/2025 Comments Unknown Sex and Gender Information Value Date Recorded Sex Assigned at Female 05/08/2025 1:58 PM EST Legal Sex Female 3:20 AM EST Gender Identity Not on file Sexual Orientation Not on file documented as of this encounter Plan of Treatment Upcoming Encounters Date Type Department Care Team (Late st Contact Info) Description 05/19/2025 2:15 PM EST Appointment [facility] [address] [place] [phone] 05/14/2026 10:30 AM EST Office Visit Internal Medicine - [place] [address] [phone] Vida Ring PA [address] [address] documented as of this encounter Visit Diagnoses Not on filedocumented in this encounter Additional Health Concerns Assessment Noted Time PHQ-9 Depression Total Score: 0 05/07/20 25 1:57 PM EST documented as of this encounter Care Teams Kayaking Instructor Relationship Specialty Start Date End Date Vida Ring PA [facility] [place] [address] PCP - General 04/04/20 documented as of this encounter
--- OUTSIDE RECORDS SUMMARY | 2025-05-17 14:21 | XMS_ITS | Clinical Summary ---
Author Organization 175 [facility] Address [address] [place] [address] Phone Care Team Providers Care Coal Mine Inspector Name Role Phone Vida Ring Primary Care Provider + Allergies No known active allergies Medications pramipexole (MIRAPEX) 0.125 mg tablet Take 2 tablets (0.25 mg total) by mouth at bedtime. 3 Active B complex tablet Take 1 tablet by mouth 1 (one) time each day. Active TURMERIC ORAL Take 500 mg by mouth 1 (one) time each day. Active amLODIPine (NORVASC) 5 mg tabletIndications :Essential (primary) hypertension TAKE 1 TABLET BY MOUTH EVERY DAY 90 tablet 3 5 Active cholecalciferol (VITAMIN D-3) 25 mcg (1,000 unit) capsuleIndication s:Vitamin D deficiency Take 1 capsule (1,000 Units total) by mouth 1 (one) time each day. 90 capsule 3 5 Active conjugated estrogens (PREMARIN) vaginal creamIndications: Atrophic vaginitis Insert 0.5 g into the vagina 2 (two) times a week. 100 g 3 5 Active conjugated estrogens (PREMARIN) vaginal cream 0.625 Each. 8 05/08/20 25 Discontinu ed(Reorder ) Active Problems Problem Noted Date Diagnosed Date Insomnia 03/31/2024 Osteoporosis 03/31/2024 Overview (03/31/2024): BMD 02/23/20 Restless leg syndrome 01/20/2019 Assessment & Plan (05/08/2025 2:25 PM EST): HTN (hypertension) 10/19/2017 Assessment & Plan (05/08/2025 2:25 PM EST): Hyperlipidemia 10/19/2017 Assessment & Plan (05/08/2025 2:25 PM EST): Vitamin D deficiency 10/19/2017 Assessment & Plan (05/08/2025 2:25 PM EST): Orders: cholecalciferol (VITAMIN D-3) 25 mcg (1,000 unit) capsule; Take 1 capsule (1,000 Units total) by mouth 1 (one) time each day. Encounters Date Type Department Care Team Description 05/15/2025 Results Follow-Up Internal Medicine - [address] [phone] iVda Ring PA 05/08/2025 11:15 AM EST Office Visit Internal Medicine - [address] [phone] Vida Ring PA Routine general medical examination at a health care facility (Primary Dx); Primary hypertension; Mixed hyperlipidemia; Restless leg syndrome; Vitamin D deficiency; Atrophic vaginitis; Encounter for screening mammogram for malignant neoplasm of breast 05/04/2025 9:05 AM EST Lab Draw Station - [address] [place] [phone] Primary hypertension; Routine physical examination; Vitamin D deficiency; Mixed hyperlipidemia from Last 3 Months Immunizations Immunization Administration Dates Next Due Influenza trivalent, 0.5mL [...] Site/Laterality Comments OTHER SURGICAL HISTORY 1999 PROCEDURE: MD TOTAL ABDOMINAL HYSTERECT W/WO RMVL TUBE OVARY; [...] care for your loved ones. For example, children's tutor nursery or elderly care for an older adult? [...] Sign Reading Time Taken Comments Blood Pressure 183/88 05/08/2025 10:46 AM EST Pulse 69 05/08/2025 10:43 AM EST Temperature 36.4 C (97.5 F) 05/08/2025 10:43 AM EST Respiratory Rate - - Oxygen Saturation 98% 05/08/2025 10:43 AM EST Inhaled Oxygen Concentration - - Weight 80.3 kg (177 lb) 05/08/2025 10:43 AM EST Height 165.1 cm (5' 5 ) 05/08/2025 10:43 AM EST Body Mass Index 29.45 05/08/2025 10:43 AM EST Plan of Treatment Upcoming Encounters Date Type Department Care Team (Late st Contact Info) Description 05/19/2025 2:15 PM EST [facility]ointment [facility] [address] [place] [id number] 05/14/2026 10:30 AM EST Office Visit Internal Medicine - [place] [facility] [address] [place] [phone] Vida Ring, PA 175 [facility] [address] [place] [address] Health Maintenance Due Date Last Done Comments Zoster Vaccines (1 of 2) 01/17/2000 DTaP,Tdap,and Td Vaccines (2 - Td or Tdap) 05/30/2019 05/30/2009 Hepatitis C Screening 04/26/2022 COVID-19 Vaccine ( - 2024- season) 2025 05/07/2021, 09/02/2020, 08/05/2020 RSV Immunization Adult Patients (1 - 1-dose 75+ series) 2025 Colorectal Cancer Screening: Colonoscopy 10/23/2025 10/23/2020 Hypertension/CHF/CAD Annual BMP Blood Test 05/04/2026 05/04/2025, 07/13/2023, 07/13/2023 Social Influencers of Health Screening 05/07/2026 05/07/2025 Falls Risk Assessment 05/08/2026 05/08/2025 Medicare Annual Wellness Visit 05/08/2026 05/08/2025 Osteoporosis Screening (Bone Density Screening) 02/22/2030 02/23/2020 Cholesterol Screening (Lipid Panel) 05/04/2030 05/04/2025, 07/13/2023, 07/13/2023 Pneumococcal Vaccine: 50+ Years Completed 01/31/2016, 06/28/2015 Breast Cancer Screening Discontinued 08/20/19 24, 02/23/2020, 01/18/2019, Additional history exists Influenza Vaccine Completed 02/18/2025, , 03/16/2023, Additional history exists Depression Screening Completed 05/07/2025 HIB Vaccines Aged Out No longer eligi [...] Procedure Name Priority Date/Time Associated Diagnosis Comments MICROALBUMIN CREATININE URINE RATIO Routine 05/04/2025 9:45 AM EST Primary hypertension COMPREHENSIVE METABOLIC PANEL Routine 05/04/2025 9:10 AM EST Primary hypertension LIPID PANEL WITH REFLEX TO DIRECT LDL Routine 05/04/2025 9:10 AM EST Mixed hyperlipidemia MAGNESIUM Routine 05/04/2025 9:10 AM EST Routine physical examination THYROID STIMULATING HORMONE Routine 05/04/2025 9:10 AM EST Routine physical examination VITAMIN D 25 HYDROXY Routine 05/04/2025 9:10 AM EST Vitamin D deficiency VITAMIN B12 Routine 05/04/2025 9:10 AM EST Routine physical examination HEMOGLOBIN A1C Routine 05/04/2025 9:10 AM EST Routine physical examination [facility] SCREENING DIGITAL Routine 08/20/2023 11:33 AM EDT Encounter for screening mammogram for malignant neoplasm of breast COLONOSCOPY Routine 10/23/2020 [facility] DEXA AXIAL SKELETON Routine 02/23/2020 10:41 AM EDT Age-related osteoporosis without current pathological fracture from Last 3 Months or Most Recently Relevant to Health Maintenance Results * Microalbumin creatinine urine ratio (05/04/2025 9:45 AM EST) Creatinine, Urine 138.0 mg/dL 05/04/2025 11:19 AM EST [facility] Microalb, Ur 8.0 0.0 - 29.0 mg/L 05/04/2025 11:19 AM EST [facility] Microalb/Creat Ratio 6 <30 mg/g creat 05/04/2025 11:19 AM [facility] Urine Urine specimen obtained by clean catch procedure / Unknown Non-blood Collection / Unknown 05/04/2025 9:45 AM EST 05/04/2025 10:28 AM EST Vida HOLLIDAY [facility] URINE ORDERABLES Fin al Result [facility] [address] [place] [address], [place] [phone] * (ABNORMAL) Lipid panel with reflex to direct LDL (05/04/2025 9:10 AM EST) Cholesterol 160 0 - 200 mg/dL 05/04/2025 11:21 AM [facility] Triglycerides 152(H) 0 - 150 mg/dL 05/04/2025 11:21 AM [facility] HDL 42 >=40 mg/dL 05/04/2025 11:21 AM [facility] LDL Calculated 88 0 - 100 mg/dL 05/04/2025 11:21 AM [facility] Comment:Estimated LDL is kalee culated using the Friedewald equation: Total cholesterol - HDL cholesterol - (Triglycerides/5) VLDL Cholesterol Kalee 30.4 mg/dL 05/04/2025 11:21 AM EST [facility] Non HDL Chol. (LDL+VLDL) 118 <145 mg/dL 05/04/2025 11:21 AM EST [facility] Chol/HDL Ratio 3.8 0.0 - 4.4 05/04/2025 11:21 AM EST [facility] Blood Venous blood specimen / Unknown Venipuncture / Unknown 05/04/2025 9:10 AM EST 05/04/2025 10:27 AM EST Vida HOLLIDAY [facility] BLOOD ORDERABLES Fin al Result Performing Organization Address City/[facility]/ZIP Co de Phone Number [facility] [address] [place] [address], [place] [phone] * (ABNORMAL) Vitamin D 25 hydroxy (05/04/2025 9:10 AM EST) Vit D, 25-Hydroxy 28.2(L) 30.0 - 80.0 ng/mL 05/04/2025 11:14 AM EST [facility] Blood Venous blood specimen / Unknown Venipuncture / Unknown 05/04/2025 9:10 AM EST 05/04/2025 10:27 AM EST us Vida HOLLIDAY LAB BLOOD ORDERABLES Fin al Result Performing Organization Address City/[facility]/ZIP Co de Phone Number [facility] [address] [place] [address], [place] [phone] * (ABNORMAL) Thyroid stimulating hormone (05/04/2025 9:10 AM EST) TSH 4.61(H) 0.40 - 4.00 mcIU/mL 05/04/2025 11:13 AM EST [facility] Blood Venous blood specimen / Unknown Venipuncture / Unknown 05/04/2025 9:10 AM EST 05/04/2025 10:27 AM EST us Vida HOLLIDAY [facility] BLOOD ORDERABLES Fin al Result Performing Organization Address City/[facility]/ZIP Co de Phone Number [facility] [address] [place] [address], * Magnesium (05/04/2025 9:10 AM EST) Pathologist [facility] Magnesium 2.1 1.9 - 2.6 mg/dL 05/04/2025 11:21 AM EST [facility] Blood Venous blood specimen / Unknown Venipuncture / Unknown 05/04/2025 9:10 AM EST 05/04/2025 10:27 AM EST us Vida HOLLIDAY [facility] BLOOD ORDERABLES Fin al Result Performing Organization Address [facility] Co de Phone Number [facility] [address] [place] [address], [place] [phone] * Hemoglobin A1c (05/04/2025 9:10 AM EST) [facility] Hemoglobin A1C 5.7 <6.5 % LAB CHEMISTRY METHOD 05/04/2025 12:15 PM EST [facility] Mean Bld Glu Estim. 117 mg/dL LAB CHEMISTRY METHOD 05/04/2025 12:15 PM EST [facility] Blood Venous blood specimen / Unknown Venipuncture / Unknown 05/04/2025 9:10 AM EST 05/04/2025 10:36 AM EST us Vida HOLLIDAY LAB BLOOD ORDERABLES Fin al Result Performing Organization Address [facility]/ZIP Co de Phone Number [facility] [address] [place] [address], [place] [phone] * Vitamin B12 (05/04/2025 9:10 AM EST) [facility] Vitamin B-12 601 211 - 911 pcg/mL 05/04/2025 11:19 AM EST [facility] Blood Venous blood specimen / Unknown Venipuncture / Unknown 05/04/2025 9:10 AM EST 05/04/2025 10:27 AM EST us Vida HOLLIDAY [facility] BLOOD ORDERABLES Fin al Result [facility] [address] [place] [address], * Comprehensive metabolic panel (05/04/2025 9:10 AM EST) Pathologist [facility] Sodium 143 133 - 145 mmol/L 05/04/2025 11:21 AM [facility] Potassium 4.5 3.5 - 5.5 mmol/L 05/04/2025 11:21 AM [facility] Chloride 105 96 - 110 mmol/L 05/04/2025 11:21 AM [facility] CO2 28 21 - 32 mmol/L 05/04/2025 11:21 AM [facility] Anion Gap 10 3 - 11 05/04/2025 11:21 AM [facility] Glucose 94 70 - 100 mg/dL 05/04/2025 11:21 AM [facility] BUN 17 5 - 25 mg/dL 05/04/2025 11:21 AM [facility] Creatinine 0.88 0.50 - 1.10 mg/dL 05/04/2025 11:21 AM [facility] eGFR 69 >=60 mL/min/1. 73m2 05/04/2025 11:21 AM [facility] Comment:Calculation based on the Chronic Kidney Disease Epidemiology Collaboration (CKD-EPI) equation refit without adjustment for race. BUN/Creatinine Ratio 19.3 05/04/2025 11:21 AM [facility] Calcium 9.0 8.5 - 10.5 mg/dL 05/04/2025 11:21 AM [facility] AST (SGOT) 15 10 - 42 unit/L 05/04/2025 11:21 AM [facility] ALT (SGPT) 19 10 - 60 unit/L 05/04/2025 11:21 AM [facility] Alkaline Phosphatase 109 42 - 121 unit/L 05/04/2025 11:21 AM [facility] Total Protein 6.6 6.0 - 8.0 g/dL 05/04/2025 11:21 AM [facility] Albumin 4.0 3.2 - 5.0 g/dL 05/04/2025 11:21 AM [facility] Total Bilirubin 0.4 0.0 - 1.4 mg/dL 05/04/2025 11:21 AM [facility] Blood Venous blood specimen / Unknown Venipuncture / Unknown 05/04/2025 9:10 AM EST 05/04/2025 10:27 AM EST us Vida HOLLIDAY [facility] BLOOD ORDERABLES Fin al Result Performing Organization Address City/State/[facility] Co de Phone Number [facility] [address] [place] [address], * RADHA SCREENING DIGITAL (08/20/2023 11:33 AM EDT) Anatomical Region Laterality Modality Mammography 08/20/2023 9:43 AM EDT Narrative 08/20/2023 11:[address] [facility] Diagnostic Imaging Department [address] [place] [address] Patient: ALINA PRINGLE /Age/Sex: 1950 73 - F Unit#: [id number] Location/Status: SPDIMAM/REG CLI Mnemonic/Ordering Site: [facility] Ordering Physician: WU HALLMAN MD [facility] Screening Digital - 08/20/23 - [id number] Report Status:Signed EXAM: [facility] Screening Digital EXAM DATE AND TIME: 08/20/2023 9:56 AM HISTORY: Annual screening COMPARISON: TECHNIQUE: Bilateral digital breast tomosynthesis was performed in the CC and MLO projections. Computer aided detection with Turbogen 3D 3.1 was employed. TISSUE DENSITY: b. There are scattered areas of fibroglandular density. FINDINGS: No suspicious masses, grouped microcalcifications, or areas of architectural distortion are seen. The skin and vascularity are unremarkable. IMPRESSION: Stable mammographic appearance of the breasts. No evidence of malignancy is seen. A negative [...] Date/Time: 08/20/23 1132 Sign date/Time: 08/20/23 1133 Procedure Note Owen Pacheco MD - 01/04/2024 [facility] Diagnostic Imaging Department [address] [place], [place] [id number] Patient: ALINA PRINGLE.O.B./Age/Sex: 1950 - 73 - F Unit#: [id number] Location/Status: SPDIMAM/REG CLI Mnemonic/Ordering Site: [facility] Ordering Physician: WU HALLMAN MD [facility] Screening Digital - 08/20/23 - 0956 Report Status:Signed EXAM: [facility] Screening Digital EXAM DATE AND TIME: 08/20/2023 9:56 AM HISTORY: Annual screening COMPARISON: TECHNIQUE: Bilateral digital breast tomosynthesis was performed in the CCand MLO projections. Computer aided detection with Turbogen 3D 3.1was employed. TISSUE DENSITY: b. There [...] Sign date/Time: 08/20/23 1133 Wu Hallman MD IMG BI PROCEDURES Final Result * Colonoscopy (10/23/2020) Colonoscopy no interpretation , abstracted Anatomical Region Laterality Modality Other us Historical Provider HEALTH MAINTENANCE Final Result * [facility] DEXA AXIAL SKELETON (02/23/2020 10:41 AM EDT) Anatomical Region Laterality Modality Mammography 02/23/2020 9:04 AM EDT Narrative 02/23/2020 10:[address] [facility] Diagnostic Imaging Department [address] [place] [id number] Patient: ALINA PRINGLE Gianfranco /Age/Sex: 1950 - 70 - F Unit#: [id number] [facility] Ordering Physician: MAXIMUS ESCOBAR MD [facility] Dexa Axial Skeleton - 02/23/20 - 1007 HISTORY: The patient is a 70-year-old postmenopausal female with clinical concern for metabolic bone disease. FINDINGS: Dual [...] 95% of that of age matched controls. This yields a T-score of -1.5 and a Z-score of -0.3 which is diagnostic of osteopenia. However, the T-score of the right femoral neck is -2.8 which is diagnostic of osteoporosis. IMPRESSION: 1. Osteoporosis. There has been an increase of 0.5% in bone mineral density in the lumbar spine since the prior examination of 04/20/2017. There has been an increase of 3.8% in bone mineral density in the right femur and an increase of 2.4% in bone mineral density in the left femur. 2. FRAX analysis yields a 10-year probability of major osteoporotic fracture of 16.7% and a 10-year probability of hip fracture of 5.0%. Code 95747 Dictating Physician: BRITT DELANEY MD Electronically Signed by: BRITT DELANEY MD Dic Date/Time: 02/23/20 1038 Sign date/Time: 02/23/20 1041 Procedure Note Britt Delaney MD - 05/06/2022 [facility] Diagnostic Imaging Department [address] [place] [address] Patient: ALINA PRINGLE Gianfranco GeB./Age/Sex: 1950 - 70 - F Unit#: [id number] Location/Status: [facility] Ordering Physician: MAXIMUS ESCOBAR MD [facility] [...] density of the femurs bilaterally is 0.813 gm/dn8hinij is 81% of that of young normals [...] probability of hip fracture of 5.0%. Code 92137 Dictating Physician: BRITT DELANEY MD Electronically Signed by: BRITT DELANEY MD Dic Date/Time: 02/23/20 1038 Sign date/Time: 02/23/20 1041 Maximus Escobar MD [facility] BI PROCEDURES Final Result from Last 3 Months or Most Recently Relevant to Health Maintenance Insurance [employer] Care Teams Coal Mine Inspector Relationship Specialty Start Date End Date Vida Ring PA [address] [place] [address] PCP - General 04/04/20
== END 2025-05-17 13:58 | disposition home or self-care (01) ==
LOC: HO.HSMC 12:49
PROVIDERS: PCP Internal Medicine; Visit Provider Physician Assistant Medical
DX: G25.81 Restless legs syndrome (principal); R06.83 Snoring; F51.01 Primary insomnia
CPT/HCPCS: 99214

== ENCOUNTER → 2025-05-17 12:48 | Outpatient (BNVA) | payer MEDICARE, SELFPAY | PROVIDERS: PCP Internal Medicine; Visit Provider Physician Assistant Medical | DX: G25.81 Restless legs syndrome (principal); F51.01 Primary insomnia; R06.83 Snoring; Z79.899 Other long term (current) drug therapy; Z71.89 Other specified counseling | CPT/HCPCS: 99212 ==